=== PATIENT | female | born 1965 | race Two or more races ===

== ENCOUNTER 2022-07-24 10:47 | Emergency (ER) | payer SELFPAY ==
[~2022-07-24] VITALS: Ht 177.8 cm; Wt 100.0 kg
[2022-07-24 12:00] VITALS: BP 135/65
[2022-07-24] MEDS ORDERED: MECLIZINE HCL 25 MG TAB PO ONE (12:15)
[2022-07-24] MEDS ORDERED: ACETAMINOPHEN 500 MG TAB PO ONE (12:15)
[2022-07-24] MEDS ORDERED: [UNRECOGNIZED DRUG - CODE] OT (12:33)
[2022-07-24] MEDS ORDERED: MECL-111 PO (12:33)
[2022-07-24] MEDS ORDERED: ONDA-144 PO (12:34)
== END 2022-07-24 12:51 | disposition home or self-care (01) ==
LOC: ER 10:47
DX: H92.01 Otalgia, right ear (principal); R06.7 Sneezing; H91.91 Unspecified hearing loss, right ear; Z88.5 Allergy status to narcotic agent; Z88.8 Allergy status to other drugs, medicaments and biological substances
CPT/HCPCS: 99283; J8597